=== PATIENT | female | born 1955 ===

== ENCOUNTER 2017-03-31 10:48 | Emergency (ER) | payer OTHER ==
[2017-03-31 10:59] VITALS: O2SAT 98
--- NOTE | 2017-03-31 12:50 | C.PDOC ---
History Of Present Illness 61 y/o F c no PMHx p/w hematuria, increased urinary frequency x this morning. Denies fever, chills, dyspnea, vomiting, diarrhea, back pain. Patient states that sometimes she gets abdominal soreness diffusely but denies any abdominal pain at this time. Time Seen by Provider: 03/31/17 12:24 Chief Complaint (Nursing): Female Genitourinary Past Medical History Vital Signs: Last Vital Signs Temp 98.4 F 03/31/17 13:06 Pulse 82 03/31/17 13:06 Resp 16 03/31/17 13:06 BP 146/92 H 03/31/17 13:06 Pulse Ox 98 03/31/17 13:06 Family History: States: No Known Family Hx - Social History Hx Alcohol Use: No Hx Substance Use: No - Immunization History Hx Tetanus Toxoid Vaccination: No Hx Influenza Vaccination: No Hx Pneumococcal Vaccination: No Review Of Systems Except As Marked, All Systems Reviewed And Found Negative. Constitutional: Negative for: Fever Respiratory: Negative for: Shortness of Breath Physical Exam - Physical Exam Additional Physical Exam Comments: Gen: NAD Head: NC Eyes: No scleral icterus ENT: MMM. No pharyngeal erythema or exudates Neck: Supple Chest: No tenderness CV: Regular rate Lungs: CTA b/l Abd: Soft, NT, ND Back: No CVA tenderness Skin: No rash Extremities: No swelling or tenderness Neuro: Alert, no focal deficit ED Course And Treatment O2 Sat by Pulse Oximetry: 98 Medical Decision Making Medical Decision Making: Advised patient to seek primary care for regular check ups and preventative care. Otherwise, currently, will check for UTI. Disposition - Disposition Referrals: Volodymyr Jacobson MD [Staff Provider] - Disposition: HOME/ ROUTINE Disposition Time: 16:04 Condition: STABLE Additional Instructions: Accession No. : [id number] Patient Name / ID : LIEN DOWNEY / [id number] Exam Date : 03/31/2017 14:45:09 ( Approved ) Study Comment : Sex / Age : F / 61Y Creator : Wilfred Duarte MD Dictator : Wilfred Duarte MD Rib Cutter : Welfare Director : Wilfred Duarte MD Approver2 : Report Date : 03/31/2017 15:56:54 My Comment : HISTORY: bleeding, lower abdominal pain COMPARISON: None available. TECHNIQUE: Transabdominal and transvaginal FINDINGS: UTERUS: Measures 5.2 x 2.5 x 4.2 cm. Homogeneous echotexture retroverted uterus. Posterior subserosal fundal fibroid, 1.1 x 0.8 x 1.2 cm. No other uterine mass identified. ENDOMETRIUM: Measures 2 mm in diameter. Trace endometrial fluid CERVIX: No cervical abnormality identified. RIGHT OVARY: Measures 2.0 x 1.1 x 1.4 cm. No solid mass. Normal flow. LEFT OVARY: Not visualized FREE FLUID: No significant free fluid noted. OTHER FINDINGS: None. IMPRESSION: 1.1 cm fundal uterine fibroid. Trace endometrial fluid. Left ovary not visualized. Instructions: Uterine Fibroids Forms: [facility] (Vietnamese) - Clinical Impression Clinical Impression: Fibroid
[2017-03-31 13:08] LABS: HCG,QUALITATIVE URINE NEGATIVE (NEGATIVE)
[2017-03-31 13:09] LABS: URINE BILIRUBIN NEGATIVE (NEGATIVE); URINE BLOOD NEGATIVE (NEGATIVE); URINE CLARITY Clear (Clear); URINE COLOR Colorless (YELLOW); URINE GLUCOSE (UA) NORMAL (Normal); URINE LEUKOCYTE ESTERASE NEG Leu/uL (Negative); URINE NITRATE NEGATIVE (NEGATIVE); URINE PROTEIN NEGATIVE (NEGATIVE); URINE UROBILINOGEN NORMAL mg/dL (0.2-1.0)
[2017-03-31 13:15] VITALS: BP 146/92; PULSE 82; RESP 16; TEMP 98.4
--- NOTE | 2017-03-31 15:58 | US ---
HISTORY: bleeding, lower abdominal pain COMPARISON: None available. TECHNIQUE: Transabdominal and transvaginal FINDINGS: UTERUS: Measures 5.2 x 2.5 x 4.2 cm. Homogeneous echotexture retroverted uterus. Posterior subserosal fundal fibroid, 1.1 x 0.8 x 1.2 cm. No other uterine mass identified. ENDOMETRIUM: Measures 2 mm in diameter. Trace endometrial fluid CERVIX: No cervical abnormality identified. RIGHT OVARY: Measures 2.0 x 1.1 x 1.4 cm. No solid mass. Normal flow. LEFT OVARY: Not visualized FREE FLUID: No significant free fluid noted. OTHER FINDINGS: None. IMPRESSION: 1.1 cm fundal uterine fibroid. Trace endometrial fluid. Left ovary not visualized.
== END 2017-03-31 16:30 | disposition home or self-care (01) ==
LOC: C.ER 10:48
DX: D25.9 Leiomyoma of uterus, unspecified (principal)